=== PATIENT | male | born 1965 | race African-American/Black ===

== ENCOUNTER → 2017-01-07 | Outpatient (CLI) | payer OTHER ==
--- NOTE | 2017-01-07 13:46 | KCIC ---
Ultrasound scrotum Indication: Right groin pain. The right testicle measures 4.4 x 2.9 x 2.3 centimeters and the left testicle measures 4.2 x 2.8 x 2.4 centimeters. Both testes demonstrate fairly homogeneous echotexture. No vascular compromise is seen. There appears to be a tiny approximately 3 millimeter cyst along the periphery of the right testicle, which may represent a tunica cyst. No discrete testicular mass is seen. There is a 6 millimeter x 4 millimeter septated left epididymal head cyst. There are moderate bilateral hydroceles present. Imaging of bilateral groins was performed demonstrating small lymph nodes in the groin bilaterally. No definite hernia is detected. Impression: No evidence of testicular mass or vascular compromise. Bilateral hydroceles. Septated left epididymal head cyst. Tiny probable tunica cyst on the right Electronically signed by: Taj Ogden MD (Jan 07, 2017 13:45:14)
== END | disposition home or self-care (01) ==
LOC: KCIC US 12:30
PROVIDERS: ATTEND Physician Assistant Medical
DX: R10.31 Right lower quadrant pain (principal); N43.3 Hydrocele, unspecified
CPT/HCPCS: 76870